=== PATIENT | male | born 1975 | race Caucasian/White ===

== ENCOUNTER 2022-05-10 08:03 | Day surgery (SDC) | payer OTHER ==
[~2022-05-10] VITALS: Ht 180.3 cm; Wt 75.6 kg
[2022-05-10] VITALS (16 sets, daily range): BP systolic 114–151; BP diastolic 79–103
[~2022-05-10 08:03] MED LIST: LIDOCAINE 1%/EPI 1:100,000 inj. 10 ML multi-dose vial ONE; NO HOME MEDS; cocaine 4% topical solution 4ml bottle ONE; famotidine 20mg tablet PO ONE; mupirocin 2% ointment 22GM ONE; oxymetazoline 15 ML nasal spray NS ONE; ringers solution, lacted 1,000 ML IV SCH; tranexamic acid 100mg/ml inj. ONE
[2022-05-10] MEDS ORDERED: tranexamic acid inj. 1,000 MG in normal saline IV soln 100ML IV ONE (08:38)
[2022-05-10] MEDS ORDERED: midazolam 1 mg/ML 2ml injection ONE (09:52)
[2022-05-10] MEDS ORDERED: fentaNYL/PF 50MCG/1 ML 2ML syringe ONE (09:52)
[2022-05-10] MEDS ORDERED: propofol inj 20 ML IV ONE (09:54)
[2022-05-10] MEDS ORDERED: oxymetazoline 15 ML nasal spray NS PRN (09:55)
[2022-05-10] MEDS ORDERED: meperidine/PF 25mg/ml syringe IV PRN ×3 (10:40)
[2022-05-10] MEDS ORDERED: ringers solution, lacted 1,000 ML IV SCH (10:40)
[2022-05-10] MEDS ORDERED: morphine 2 MG/ML inj. syringe IV PRN (10:40)
[2022-05-10] MEDS ORDERED: proCHLORperazine 10 MG/2 ml inj IV PRN (10:40)
[2022-05-10] MEDS ORDERED: morphine 4 MG/ML inj SYRINge IV PRN (10:40)
[2022-05-10] MEDS ORDERED: ondansetron/PF 4mg/2ml inj IV PRN (10:40)
[2022-05-10] MEDS ORDERED: ondansetron/PF 4mg/2ml inj ONE (11:24)
[2022-05-10] MEDS ORDERED: dexamethasone sod phosphate 4mg/ml inj. ONE (11:25)
--- NOTE | 2022-05-10 11:41 | NUR ---
Received from OR via [facility], accompanied by Anesthesiologist and report given by AYAZ Anesthesiologist. PATIENT WAKING UP, DENIES PAIN, VSS, 20G PIV TO LEFT HAND, BILATERAL COTTONOID DRESSING C/D/I. Addendum: 05/10/22 at 1152 by Evens Vásquez RN Amended: Links added.
[2022-05-10] MEDS ORDERED: salt irrigation nasal spray 45 ML SPRAY NS PRN (11:55)
--- NOTE | 2022-05-10 12:20 | NUR ---
PULLED BILATERAL COTTONOID WITHOUT S/S OF DISTRESS OR DISCOMFORT. ADMINISTERED OCEAN SPRAY AND BACITRACIN OINTMENT. APPLIED MUSTACHE DRESSING AND NO S/S OF BLEEDING AT THIS TIME. Addendum: 05/10/22 at 1229 by Evens Vásquez RN Amended: Links added.
[2022-05-10] MEDS: labetalol 20mg/4ml (5mg/ml) syringe IV PRN ×3 (12:36→12:53)
--- NOTE | 2022-05-10 13:31 | NUR ---
ALL DISCHARGE CRITERIA HAS BEEN MET. VSS, PAIN AT A TOLERABLE LEVEL, VOIDING AND ABLE TO SAFELY AMBULATE AND TRANSFER SELF. IV TAKEN OUT WITHOUT ANY COMPLICATIONS. ALL DISCHARGE INSTRUCTIONS COVERED WITH PATIENT AND ALL QUESTIONS ANSWERED. PATIENT TAKEN OUT VIA WHEELCHAIR WITH ALL BELONGINGS TO PERSONAL VEHICLE WHERE FRIEND DROVE PATIENT HOME. Addendum: 05/10/22 at 1344 by Evens Vásquez RN Amended: Links added.
== END 2022-05-10 13:31 | disposition home or self-care (01) ==
LOC: PAS 08:03
PROVIDERS: ATTEND Otolaryngology
DX: J34.2 Deviated nasal septum (principal); J34.3 Hypertrophy of nasal turbinates; J32.9 Chronic sinusitis, unspecified; Z79.899 Other long term (current) drug therapy; Z98.890 Other specified postprocedural states; Z20.822 Contact with and (suspected) exposure to COVID-19
CPT/HCPCS: 30140; 30520; 31254; 31267; 36415; 61782; 82948; 87635; 93005; A6402; C9250; C9803; J1100; J2175; J2250; J2405; J2704; J3010; J3490; J7030; J7040; J7120; U0003; U0005; Z7506; Z7508; Z7512; A4618; A6449; A7000